=== PATIENT | male | born 1970 | race Two or more races ===

== ENCOUNTER 2017-06-05 17:14 | Emergency (ER) | payer SELFPAY ==
[~2017-06-05] VITALS: Ht 162.6 cm; Wt 74.8 kg
[2017-06-05 17:19] VITALS: BP 132/82
[2017-06-05] MEDS ORDERED: CEPHALEXIN MONOHYDRATE 500 MG CAPSULE PO ONE ×2 (17:30→17:39)
[2017-06-05] MEDS ORDERED: TDAP [DIPH/PERTUSSIS/TET] 0.5 ML VIAL IM ONE ×2 (17:30→17:39)
[2017-06-05] MEDS ORDERED: HYDROCODONE/APAP 5/325MG 1 EACH TABLET PO ONE (17:30)
[2017-06-05] MEDS ORDERED: HYDROCODONE/APAP 5/325MG 1 EACH TABLET ONE (17:38)
--- NOTE | 2017-06-05 17:40 | NUR ---
Katherine brown in EDM - 06/05/17 at 1744 by [facility] AT BEDSIDE FOR L KNEE XRAY. POST REDUCTION.
--- NOTE | 2017-06-05 17:45 | NUR ---
CHARLEY ZAFAR AT FOR UND CARE.
== END 2017-06-05 18:21 | disposition home or self-care (01) ==
LOC: ER 17:17
DX: S62.521B Displaced fracture of distal phalanx of right thumb, initial encounter for open fracture (principal); W45.8XXA Other foreign body or object entering through skin, initial encounter; Y93.89 Activity, other specified; Y92.89 Other specified places as the place of occurrence of the external cause; Y99.0 Civilian activity done for income or pay
CPT/HCPCS: 29130; 73140; 90471; 90715; 99284; A4606; Z7610